=== PATIENT | male | born 1970 | race Two or more races ===

== ENCOUNTER 2025-01-07 01:32 | Inpatient (IN) | payer MEDICAID, OTHER ==
[~2025-01-07] VITALS: Ht 167.6 cm; Wt 98.6 kg
--- NOTE | 2025-01-07 02:08 | ED.PDOC ---
SOB-HPI HPI Comments 54-year-old male who came to ER for shortness of breath. Patient notes history of congestive heart failure, status post CABG. For the past 2 weeks, patient has been having dry nonproductive cough. Two days ago he started having shortness a breath, especially with exertion, progressively worsening. Denies any acute chest pains or fever. Saturating 98% on room air Chief Complaint: Shortness a breath Time Seen by MD: 02:08 Reviewed notes: Nurses Notes Information Source: Patient Mode of Arrival: Ambulatory Severity: Moderate Timing: Days Duration: Since onset Context: At Rest, With Light Exertion History of: CHF Prehospital treatment: None Associated Signs and Symptoms: Cough If cough with SOB: Non-Productive Past Medical History PAST MEDICAL HISTORY: CHF Surgical History: CABG Family History Family History: Reviewed,noncontributory to illness Social History Smoker: Non-Smoker Alcohol: Denies ETOH Use Drugs: Denies Drug Use Lives In: Home Constitutional: denies: chills, diaphoresis, fatigue, fever, malaise, sweats, weakness, others EENTM: denies: blurred vision, double vision, ear bleeding, ear discharge, ear drainage, ear pain, ear ringing, eye pain, eye redness, hearing loss, mouth pain, mouth swelling, nasal discharge, nose bleeding, nose congestion, nose pain, photophobia, tearing, throat pain, throat swelling, voice changes, others Respiratory: reports: cough, SOB at rest, shortness of breath, SOB with excertion; denies: hemoptysis, orthopnea, stridor, wheezing, others Cardiovascular: denies: chest pain, dizzy spells, diaphoresis, Dyspnea on exertion, edema, irregular heart beat, left arm pain, lightheadedness, palpitations, PND, syncope, others Gastrointestinal: denies: abdomen distended, abdominal pain, blood streaked bowels, constipated, diarrhea, dysphagia, difficulty swallowing, hematemesis, melena, nausea, poor appetite, poor fluid intake, rectal bleeding, rectal pain, vomiting, others Genitourinary: denies: burning, dysuria, flank pain, frequency, hematuria, incontinence, penile discharge, penile sore, pain, testicle pain, testicle swelling, urgency, others Neurological: denies: dizziness, fainting, headache, left sided numbness, left sided weakness, numbness, paresthesia, pre-existing deficit, right sided numbness, right sided weakness, seizure, speech problems, tingling, tremors, weakness, others Musculoskeletal: denies: back pain, gout, joint pain, joint swelling, muscle pain, muscle stiffness, neck pain, others Integumetry: denies: bruises, change in color, change in hair/nails, dryness, laceration, lesions, lumps, rash, wounds, others Allergic/Immunocompromised: denies: Difficulty Healing, Frequent Infections, Hives, Itching, others Hematologic/Lymphatic: denies: anemia, blood clots, easy bleeding, easy bruising, swollen glands, others Endocrine: denies: excessive hunger, excessive sweating, excessive thirst, excessive urination, flushing, intolerance to cold, intolerance to heat, unexplained weight gain, unexplained weight loss, others Psychiatric: denies: anxiety, bipolar disorder, depression, hopeless, panic disorder, schizophrenia, sleepless, suicidal, others Physical Exam General Appearance: No Apparent Distress, Normal HEENT: Normal ENT Inspection, Pharynx Normal, TMs Normal Neck: Full Range of Motion, Non-Tender, Normal, Normal Inspection Respiratory: Chest Non-Tender, Lungs Clear, No Accessory Muscle Use, No Respiratory Distress, Normal Breath Sounds Cardiovascular: No Edema, No JVD, No Murmur, No Gallop, Normal Peripheral Pulses, Regular Rate/Rhythm Breast Exam: Deferred Gastrointestinal: No Organomegaly, Non Tender, No Pulsatile Mass, Normal Bowel Sounds, Soft Genitalia: Deferred Pelvic: Deferred Rectal: Deferred Extremities: No calf tenderness, Normal capillary refill, Normal inspection, Normal range of motion, Non-tender, No pedal edema Musculoskeletal : Apperance: Normal Neurologic: Alert, application technical designer II-XII nml as Tested, No Motor Deficits, Normal Affect, Normal Mood, No Sensory Deficits Cerebellar Function: Normal Reflexes: Normal Skin: Dry, Normal Color, Warm Lymphatic: No Adenopathy Was a procedure done? Was a procedure done?: No Differential Dx Differential Diagnosis: CHF, COPD, Pneumonia, Respiratory Distress X-Ray, Labs, Meds, VS Vital Signs Date Time Temp Pulse Resp B/P (MAP) Pulse Ox O2 Delivery O2 Flow Rate FiO2 01/07/25 04:10 117/71 01/07/25 02:26 98.1 76 16 118/87 (97) 98 98.1 01/07/25 02:14 74 Lab Test 01/07/25 02:51 01/07/25 02:04 Range/Units Troponin I High Sensitivity 16 17 </=54 ng/L White Blood Count 6.4 4.4-10.8 10^3/uL Red Blood Count 4.82 4.5-5.90 10^6/uL Hemoglobin 14.6 13.5-17.5 g/dL Hematocrit 44.2 41.0-53.0 % Mean Corpuscular Volume 91.5 80.0-100.0 fL Mean Corpuscular Hemoglobin 30.2 28.0-32.0 pg Mean Corpuscular Hemoglobin Concent 33.0 32.0-36.0 g/dL Red Cell Distribution Width 18.4 H 11.8-14.3 % Platelet Count 154 140-450 10^3/uL Mean Platelet Volume 8.1 6.9-10.8 fL Neutrophils (%) (Auto) 58.6 37.0-80.0 % Lymphocytes (%) (Auto) 25.6 10.0-50.0 % Monocytes (%) (Auto) 11.8 0.0-12.0 % Eosinophils (%) (Auto) 2.9 0.0-7.0 % Basophils (%) (Auto) 1.1 0.0-2.0 % Neutrophils # (Auto) 3.7 1.6-8.6 10 ^3/uL Lymphocytes # (Auto) 1.6 0.4-5.4 10 ^3/uL Monocytes # (Auto) 0.8 0-1.3 10 ^3/uL Eosinophils # (Auto) 0.2 0-0.8 10 ^3/uL Basophils # (Auto) 0.1 0-0.2 10 ^3/uL Nucleated Red Blood Cells 0.1 % Prothrombin Time 11.7 9.3-11.8 sec Prothrombin Time INR 1.12 0.9-1.15 Activated Partial Thromboplast Time 27.9 24.5-34.5 SEC Sodium Level 142 136-145 mmol/L Potassium Level 4.3 3.5-5.1 mmol/L Chloride Level 111 H 98-107 mmol/L Carbon Dioxide Level 22 20-31 mmol/L Anion Gap 9 5-15 Blood Urea Nitrogen 21 9-23 mg/dL Creatinine 0.91 0.700-1.30 mg/dL Glomerular Filtration Rate Calc 100 >90 mL/min BUN/Creatinine Ratio 23.1 H 10.0-20.0 Serum Glucose 97 74-106 mg/dL Calcium Level 9.2 8.7-10.4 mg/dL Total Bilirubin 1.0 0.2-1.0 mg/dL Aspartate Amino Transferase (AST) 35 13-40 U/L Alanine Aminotransferase (ALT) 44 H 7-40 U/L Alkaline Phosphatase 112 46-116 U/L B-Type Natriuretic Peptide 1398.84 0-100 pg/mL Total Protein 7.7 5.7-8.2 g/dL Albumin 4.4 3.2-4.8 g/dL Current Medications Medications (Trade) Dose Ordered Sig/Charlene Route Start Time Stop Time Status Last Admin Furosemide (Lasix Tablet) 20 mg ONCE ONCE PO 01/07/25 02:15 01/07/25 02:16 DC 01/07/25 04:10 Time of 1ST Reevaluation: 02:05 Reevaluation 1ST: Unchanged Patient Education/Counseling: Diagnosis, Treatment Family Education/Counseling: No Family Present Departure 1 Departure Time of Disposition: 04:33 Impression: Primary Impression: Acute coronary syndrome Additional Impression: Diastolic congestive heart failure Disposition: 09 ADMITTED INPATIENT Admit to: Tele Condition: Guarded Comments Chest Pain and Shortness of Breath Chief Complaint: Chest tightness and shortness of breath History of Present Illness: 54-year-old male with significant cardiac history including hypertension, coronary artery disease, congestive heart failure, and previous cardiac bypass surgery presents with complaints of progressive shortness of breath and chest tightness for the past two weeks. Symptoms have notably worsened over the last 24 hours. Patient's presentation is concerning for acute coronary syndrome and acute decompensated heart failure. Review of Systems: Cardiovascular: Positive for chest tightness and shortness of breath All other systems: Deferred or negative Medications: Current medications not specified in 3d specialist Allergies: No known allergies documented Past Medical History: 1. Hypertension 2. Coronary Artery Disease 3. Congestive Heart Failure Past Surgical History: 1. Previous cardiac bypass surgery Lab Results: CBC: Unremarkable Chemistry Panel: Unremarkable Troponin: 17 (normal) BNP: 1,400 (elevated) Imaging and Other Relevant Results: Chest X-ray: Demonstrates cardiomegaly Medical Decision Making: Summary Statement: 54-year-old male with significant cardiac history presenting with worsening shortness of breath and chest tightness, elevated BNP, and cardiomegaly on chest x-ray. Problem List: 1. Acute Coronary Syndrome 2. Acute on Chronic Heart Failure 3. Hypertension Differential Diagnosis: 1. Non-ST elevation myocardial infarction 2. Unstable angina 3. Acute decompensated heart failure 4. Pulmonary edema ED Course: Patient received aspirin and Lasix in the emergency department. Given significant cardiac history and current presentation, decision made to admit for further management. Assessment and Plan: 1. Acute Coronary Syndrome/Diastolic Heart Failure: - Admit to Cardiology service - Continue aspirin and Lasix - Serial cardiac enzymes - Cardiology consultation - Daily weights and strict I/O monitoring 2. Chronic Medical Problems: - Continue home medications as appropriate - Medication reconciliation on admission Billing Information: ICD-10: I20.0 - Unstable angina ICD-10: I50.30 - Unspecified diastolic (congestive) heart failure ICD-10: I25.10 - Atherosclerotic heart disease of [place] coronary artery ICD-10: I10 - Essential (primary) hypertension Critical Care Note Critical Care Time?: Yes (35 min-critical care time only) Critical care comment: Shortness of breath Stability Stability form required: No Heart Score Heart Score: Heart Score Response (Comments) Value History Moderate Suspicious 1 EKG Repolarization Disturb 1 Age 45-64 1 Risk Factors 1 or 2 risk factors 1 Troponin Normal limit 0 Total 4 I personally scribed for ANA MARIA KEBEDE MD ([email or web address]) on 01/07/25 at 02:08. Electronically submitted by Kai Mckeon ([email or web address]). ANA MARIA KEBEDE MD Jan 07, 2025 02:08
[2025-01-07 02:15] LABS: Basophils # (auto) 0.1 10 ^3/uL (0-0.2); Basophils % (auto) 1.1 % (0.0-2.0); Eosinophils # (auto) 0.2 10 ^3/uL (0-0.8); Eosinophils % (auto) 2.9 % (0.0-7.0); Hematocrit 44.2 % (41.0-53.0); Hemoglobin 14.6 g/dL (13.5-17.5); Lymphocytes # (auto) 1.6 10 ^3/uL (0.4-5.4); Lymphocytes % (auto) 25.6 % (10.0-50.0); Mean Corpuscular Hemoglobin 30.2 pg (28.0-32.0); Mean Corpuscular Volume 91.5 fL (80.0-100.0); Monocytes # (auto) 0.8 10 ^3/uL (0-1.3); Monocytes % (auto) 11.8 % (0.0-12.0); Neutrophils # (auto) 3.7 10 ^3/uL (1.6-8.6); Neutrophils % (auto) 58.6 % (37.0-80.0); Nucleated Red Blood Cells % 0.1 %; Platelet Count (auto) 154 10^3/uL (140-450); Red Blood Cells 4.82 10^6/uL (4.5-5.90); Red Cell Distribution Width 18.4 % (11.8-14.3); White Blood Cell 6.4 10^3/uL (4.4-10.8)
[2025-01-07 02:31] LABS: Albumin 4.4 g/dL (3.2-4.8); Alkaline Phosphatase 112 U/L (46-116); Anion Gap 9 (5-15); Aspartate Aminotransferase 35 U/L (13-40); BUN/Creatinine Ratio 23.1 (10.0-20.0); Blood Urea Nitrogen 21 mg/dL (9-23); Calcium 9.2 mg/dL (8.7-10.4); Carbon Dioxide 22 mmol/L (20-31); Glucose 97 mg/dL (74-106); Potassium 4.3 mmol/L (3.5-5.1); Sodium 142 mmol/L (136-145); Total Protein 7.7 g/dL (5.7-8.2)
[2025-01-07 02:32] LABS: INR 1.12 (0.9-1.15); Partial Thromboplastin Time 27.9 SEC (24.5-34.5); Prothrombin Time 11.7 sec (9.3-11.8)
[2025-01-07 02:38] LABS: Alanine Aminotransferase 44 U/L (7-40); Chloride 111 mmol/L (98-107)
--- NOTE | 2025-01-07 02:38 | DVH ---
CHEST RADIOGRAPH Indication: SOB Technique: Single frontal view of the chest was obtained COMPARISON: None FINDINGS: Lines and Tubes: None Lungs: Clear Pleura: No effusion. No pneumothorax. Cardiomediastinal contours: Cardiomegaly status post median sternotomy. Bones: Unremarkable IMPRESSION: 1. No acute disease. 2. Cardiomegaly.
[2025-01-07] MEDS: FUROSEMIDE 20 MG TAB PO ONE (04:10)
[2025-01-07] MEDS: ASPirin 81 mg TAB PO ONE (05:32)
[2025-01-07 06:40] VITALS: PULSE 74; RESP 13; O2SAT 96
[2025-01-07 07:50] VITALS: TEMP 98
[2025-01-07 08:17] VITALS: PULSE 85; RESP 19; O2SAT 95
--- NOTE | 2025-01-07 08:42 | ECG ---
[facility] Test Date: 2025-01-07 Test Time: 02:11:15 Pat Name: CLAUDIA CH Department: ED Room: [address] [place] [address] Gender: M Build Engineer: : 1970 Requested By: ANA MARIA KEBEDE Order Number: [id number] Reading MD: Roger Mathews Measurements Intervals [place] Rate: 74 P: 59 MD: 208 QRS: -68 QRSD: 138 T: 97 QT: 433 QTc: 481 Interpretive Statements Sinus rhythm Borderline prolonged MD interval Nonspecific IVCD with LAD Left ventricular hypertrophy Anterior Q waves, possibly due to LVH Nonspecific T abnormalities, lateral leads Electronically Signed On 01-10-2025 20:51:57 PDT by Roger Mathews Please click the below link to view image of tracing.
[2025-01-07] MEDS ORDERED: ACETAMINOPHEN 325 MG TAB PO PRN (08:45)
[2025-01-07] MEDS ORDERED: NITROGLYCERIN 0.4 MG SL TAB SL PRN (08:45)
[2025-01-07] MEDS ORDERED: MORPHINE SULFATE INJ 2 MG/ml SYRG IV PRN (08:45)
[2025-01-07] MEDS ORDERED: HYDROcodone-ACET 5/325MG TAB PO PRN (08:45)
[2025-01-07] MEDS ORDERED: DOCUSATE SOD 100 MG CAP PO PRN (08:45)
[2025-01-07] MEDS ORDERED: ONDANSETRON HCL 4 MG/2 ML VIAL IV PRN (08:45)
[2025-01-07] MEDS ORDERED: ASPI1TAB20 PO (08:49)
[2025-01-07] MEDS ORDERED: CARV3.1240 PO (08:49)
[2025-01-07] MEDS ORDERED: DAPA1TAB4 PO (08:49)
[2025-01-07] MEDS ORDERED: FURO40TA4 PO (08:49)
--- NOTE | 2025-01-07 09:10 | DVHHP2 ---
History of Present Illness Reason for Visit: Shortness of breath History of Present Illness Collins Avelar is a 54-year-old male with past medical history of CHF and CABG about 10 years ago, who came to the hospital for shortness of breath. Patient states he has been experiencing shortness of breath with associated cough and p alpitations intermittently for about 2-3 days. He states he does comply with his medications and fluid restrictions. Patient is scheduled to have an AICD placed March 12, 2025. Lasix was given and supplemental oxygen as needed. On assessment patient states he is improving. Cardiovascular: CAD, CHF Past Surgical History: Appendectomy, CABG Smoke: No ALCOHOL: none Drugs: None Lives: with Family Domestic Violence: Neg Review of Systems Constitutional: No: Fever, Chills, Sweats, Weakness, Malaise, Other Eyes: No: Pain, Vision change, Conjunctivae inflammation, Eyelid inflammation, Other, Redness ENT: No: Ear pain, Ear discharge, Nose pain, Nose discharge, Nose congestion, Mouth pain, Mouth swelling, Throat pain, Throat swelling, Other Respiratory: Cough, Shortness of breath, SOB with excertion; No: Dry, Wheezing, Hemoptysis, Pleuritic Pain, Sputum, Wheezing, Other Cardiovascular: No: Chest Pain, Palpitations, Orthopnea, Paroxysmal Noc. Dyspnea, Edema, Lt Headedness, Other Gastrointestinal: No: Nausea, Vomiting, Abdominal Pain, Diarrhea, Constipation, Melena, Hematochezia, Other Genitourinary: No Dysuria, No Frequency, No Incontinence, No Hematuria, No Rete ntion, No Other Musculoskeletal: No: other, neck pain, shoulder pain, arm pain, back pain, hand pain, leg pain, foot pain Skin: No: Rash, Lesions, Jaundice, Bruising, Other Neurological: No: Weakness, Numbness, Incoordination, Change in speech, Confusion, Seizures, Other Allergies: Coded Allergies: No Known Drug Allergy (Verified Allergy, Unknown, 01/07/25) Medications Current Medications Medications Dose Ordered Sig/Charlene Route Start Time Stop Time Status Last Admin Dose Admin Sodium Chloride 10 ml Q8HR IV 01/07/25 14:00 UNV Acetaminophen/ Hydrocodone Bitart 1 tab Q4HP PRN PO 01/07/25 08:45 UNV Ondansetron HCl 4 mg Q4HP PRN IV 01/07/25 08:45 UNV Docusate Sodium 100 mg BIDPRN PRN PO 01/07/25 08:45 UNV Acetaminophen 650 mg Q6HP PRN PO 01/07/25 08:45 UNV Nitroglycerin 0.4 mg Q5MINP PRN SL 01/07/25 08:45 UNV Exam Vital Signs Vital Signs Date Time Temp Pulse Resp B/P (MAP) Pulse Ox O2 Delivery O2 Flow Rate FiO2 01/07/25 08:17 85 19 95 Nasal Cannula* 2 28 01/07/25 07:50 98.0 118/89 (99) 98.0 General Appearance: Oriented X3, Cooperative, mild distress HEENT: Atraumatic, PERRLA Respiratory: Other (Diminished breath sounds) Cardiovascular: Regular rate, Normal S1, Normal S2, No murmurs Abdominal: Normal bowel sounds, Soft, No hepatospenomegaly Extremities: No clubbing, No cyanosis, No edema, Normal pulses, No tenderness/swelling Skin: No rashes, No breakdown, No significant lesion Neuro: Normal gait, Normal speech, Strength at 5/5 X4 ext, Normal tone Psych/Mental Status: Mental status NL, Mood NL Labs/Xrays Labs Test 01/07/25 02:51 01/07/25 02:04 Range/Units Troponin I High Sensitivity 16 </=54 ng/L White Blood Count 6.4 4.4-10.8 10^3/uL Red Blood Count 4.82 4.5-5.90 10^6/uL Hemoglobin 14.6 13.5-17.5 g/dL Hematocrit 44.2 41.0-53.0 % Mean Corpuscular Volume 91.5 80.0-100.0 fL Mean Corpuscular Hemoglobin 30.2 28.0-32.0 pg Mean Corpuscular Hemoglobin Concent 33.0 32.0-36.0 g/dL Red Cell Distribution Width 18.4 H 11.8-14.3 % Platelet Count 154 140-450 10^3/uL Mean Platelet Volume 8.1 6.9-10.8 fL Neutrophils (%) (Auto) 58.6 37.0-80.0 % Lymphocytes (%) (Auto) 25.6 10.0-50.0 % Monocytes (%) (Auto) 11.8 0.0-12.0 % Eosinophils (%) (Auto) 2.9 0.0-7.0 % Basophils (%) (Auto) 1.1 0.0-2.0 % Neutrophils # (Auto) 3.7 1.6-8.6 10 ^3/uL Lymphocytes # (Auto) 1.6 0.4-5.4 10 ^3/uL Monocytes # (Auto) 0.8 0-1.3 10 ^3/uL Eosinophils # (Auto) 0.2 0-0.8 10 ^3/uL Basophils # (Auto) 0.1 0-0.2 10 ^3/uL Nucleated Red Blood Cells 0.1 % Prothrombin Time 11.7 9.3-11.8 sec Prothrombin Time INR 1.12 0.9-1.15 Activated Partial Thromboplast Time 27.9 24.5-34.5 SEC Sodium Level 142 136-145 mmol/L Potassium Level 4.3 3.5-5.1 mmol/L Chloride Level 111 H 98-107 mmol/L Carbon Dioxide Level 22 20-31 mmol/L Anion Gap 9 5-15 Blood Urea Nitrogen 21 9-23 mg/dL Creatinine 0.91 0.700-1.30 mg/dL Glomerular Filtration Rate Calc 100 >90 mL/min BUN/Creatinine Ratio 23.1 H 10.0-20.0 Serum Glucose 97 74-106 mg/dL Calcium Level 9.2 8.7-10.4 mg/dL Total Bilirubin 1.0 0.2-1.0 mg/dL Aspartate Amino Transferase (AST) 35 13-40 U/L Alanine Aminotransferase (ALT) 44 H 7-40 U/L Alkaline Phosphatase 112 46-116 U/L B-Type Natriuretic Peptide 1398.84 0-100 pg/mL Total Protein 7.7 5.7-8.2 g/dL Albumin 4.4 3.2-4.8 g/dL CHEST RADIOGRAPH FINDINGS: Lines and Tubes: None Lungs: Clear Pleura: No effusion. No pneumothorax. Cardiomediastinal contours: Cardiomegaly status post median sternotomy. Bones: Unremarkable IMPRESSION: 1. No acute disease. 2. Cardiomegaly. Assessment/Plan Assessment/Plan Assessment: Acute exacerbation of chronic heart failure, Fluid overload, Plan: Admit to Tele, IV Lasix daily, Fluid restrictions, Supplemental oxygen as needed, Plan discussed with: Patient, Spouse My Orders Orders - MANI RAMIREZ Procedure Category Date Status Time Admit ADMIT 01/07/25 Transmitted 08:44 Code Status CODE 01/07/25 Transmitted 08:44 Sodium Chloride Lock PHA 01/07/25 Logged (Saline Lock Ns) 14:00 Hydrocodone-Acet PHA 01/07/25 Logged 5/325mg Tab ([place] 08:45 Ondansetron Hcl PHA 01/07/25 Logged (Zofran) 08:45 Docusate Sodium PHA 01/07/25 Logged Capsule (Colace 08:45 Complete Blood Count LAB 01/08/25 Verified 04:00 Comprehensive LAB 01/08/25 Verified Metabolic Panel 04:00 Condition: Serious MARKO 01/07/25 In Process 08:44 Acetaminophen Tablet PHA 01/07/25 Logged (Tylenol Tablet) 08:45 Nitroglycerin PHA 01/07/25 Transmitted Sublingual (Ntrostat 08:45 Morphine Sulfate PHA 01/07/25 Transmitted Injection 08:45 Stat Ekg For Chest MARKO 01/07/25 In Process Pain 08:44 Notify Md Of Changes MARKO 01/07/25 In Process From Base 08:44 Automotive Lot Attendant For MARKO 01/07/25 In Process 24 Hours 08:44 Emergency Dysrhythmia MARKO 01/07/25 In Process Protocol 08:44 Rhythm Strips Once [facility] 01/07/25 In Process Every Shift 08:44 Oxygen By Nasal RT 01/07/25 Transmitted Cannula 08:44 Maintain Fluid MARKO 01/07/25 In Process Restrictions 08:44 Furosemide Injection PHA 01/07/25 Transmitted (Lasix Injection) 10:00 Aspirin Enteric PHA 01/07/25 Transmitted Coated Tablet 10:00 Carvedilol Tablet PHA 01/07/25 Transmitted (Coreg Tablet) 10:00 (Nf) Dapagliflozin PHA 01/08/25 Transmitted Propanediol (Farxiga) 07:00 Date of Service: Jan 07, 2025 Billing Provider: MANI RAMIREZ Common Visit Codes: [id number] INP/OBS CARE (MOD) MANI RAMIREZ Jan 07, 2025 09:10
[2025-01-07] MEDS: ASPirin-EC 81 mg tab PO SCH (09:40)
[2025-01-07] MEDS: CARVEDILOL 3.125 MG TAB PO SCH (09:40)
[2025-01-07] MEDS: FUROSEMIDE 20 MG/2 ML VIAL IV SCH (09:40)
[2025-01-07] MEDS: SODIUM CHLOR 0.9% PF (SALINE LOCK) 10ML VIAL/SYR IV SCH (09:41)
[2025-01-07 10:57] LABS: Urine Bacteria None Seen /hpf (None Seen)
[2025-01-07 11:00] VITALS: BP 108/76; RESP 18; O2SAT 93
[2025-01-07 11:02] LABS: Urine Blood TRACE /uL (Negative); Urine Clarity Clear (Clear); Urine Color Colorless (Yellow); Urine Protein, UAD Negative (Negative); Urine Specific Gravity 1.004 (1.001-1.035); Urine Squamous Epithelial Cell None Seen /hpf (<5); Urine Urobilinogen Normal (Negative); Urine WBC < 1 /HPF (0-3); Urine pH 5.5 (5.0-9.0)
[2025-01-07 12:00] VITALS: PULSE 61
[2025-01-08] MEDS ORDERED: EMPAGLIFLOZIN 10 MG TAB PO SCH (07:00)
== END 2025-01-07 12:45 | disposition left against medical advice (07) | DRG 194 ==
LOC: ER 01:36 → OVERFLOW 08:44
PROVIDERS: ADMIT Nurse Practitioner Family; ATTEND Nurse Practitioner Family
DX: I11.0 Hypertensive heart disease with heart failure (principal); I24.9 Acute ischemic heart disease, unspecified; Z95.1 Presence of aortocoronary bypass graft; I50.33 Acute on chronic diastolic (congestive) heart failure; I25.10 Atherosclerotic heart disease of native coronary artery without angina pectoris; Z53.29 Procedure and treatment not carried out because of patient's decision for other reasons; Z95.810 Presence of automatic (implantable) cardiac defibrillator
CPT/HCPCS: 36415; 71045; 80053; 81001; 83880; 84484; 85025; 85610; 85730; 93005; 96374; 99291; G0378